=== PATIENT | female | born 1940 | race Caucasian/White ===

== ENCOUNTER → 2016-10-24 | Outpatient (CLI) | payer MEDICARE, BC ==
[~2016-10-24] MED LIST: ADVIL200 M1 PO; ATENOLOL; CALCIUM 1,2001 EACH PO; FISH OIL; GLUCOSAMINE; LIPITOR; LIPITOR20 MG PO; LISINOPRIL20 MG PO; LYSINE; MEDROL4 MG/DOSE- PO; METAMUCIL1 PKT PO; METFORMIN HCL500 M2 PO; MULTI-VITAMIN1 TAB; NEXIUM; NITROSTAT0.4 MG SL; OYSTER CALCIUM500 MG; PRILOSEC PO; PRILOSEC20 MG PO; PRINIVIL; TENORMIN50 MG PO; VIT B-12; VIT E; VITAMIN C; VITAMIN D 4001 UDTAB PO
[2016-10-24 16:30] LABS: BASOPHIL# 0.1 X10e3 (0-0.3); BASOPHIL% 0.9 % (0-2.5); EOSINOPHIL# 0.3 X10e3 (0-0.7); EOSINOPHIL% 2.8 % (0.0-7.0); HEMATOCRIT 39.4 % (35.0-45.0); HEMOGLOBIN 12.9 gm/dL (12.0-16.0); LYMPHOCYTE# 2.9 X10e3 (1.0-3.5); LYMPHOCYTE% 29.7 % (17.0-45.0); MEAN CELL VOLUME 92.1 FL (83-96); MEAN CORPUSCULAR HEMOGLOBIN 30.1 PG (28-34); MEAN CORPUSCULAR HGB CONC 32.7 g/dL (30-36); MEAN PLATELET VOLUME 8.4 FL (6.5-11.5); MONOCYTE# 0.8 X10e3 (0-1.0); MONOCYTE% 8.7 % (3.0-12.0); NEUTROPHIL# 5.6 X10e3 (1.5-7.1); NEUTROPHIL% 57.9 % (40-75); PLATELET COUNT 170 X10e3 (140-420); RED BLOOD COUNT 4.28 X10e (3.90-5.30); RED CELL DISTRIBUTION WIDTH 13.4 % (11.0-15.5); WHITE BLOOD COUNT 9.7 X10e3 (4.0-10.5)
[2016-10-24 16:31] LABS: DIFF IND NO
[2016-10-24 16:56] LABS: ALBUMIN SERUM 4.6 g/dL (3.5-5.0); BILIRUBIN,TOTAL 0.9 mg/dL (0.2-2.0); BUN/CREATININE RATIO 23.33; CALCIUM SERUM 9.4 mg/dL (8.4-10.2); CREATININE SERUM 0.9 mg/dL (0.6-1.4); GLOM FILT RATE Estimated 62.6 mL/min (>60); MAGNESIUM 1.1 mg/dL (1.6-3.0); POTASSIUM 4.3 mmol/L (3.5-5.1); PROTEIN TOTAL SERUM 7.4 g/dL (6.0-8.3)
[2016-10-24 17:17] LABS: THYROID STIMULATING HORMONE 5.06 uIU/ml (0.34-5.60)
[2016-10-24 17:21] LABS: FREE T3 2.7 pg/mL (2.5-3.9)
[2016-10-24 17:23] LABS: FREE THYROXIN (T4) 0.95 ng/dL (0.58-1.64)
== END | disposition home or self-care (01) ==
LOC: CLAB 16:02
PROVIDERS: Internal Medicine Cardiovascular Disease
DX: I48.91 Unspecified atrial fibrillation (principal)
CPT/HCPCS: 36415; 80053; 83735; 84439; 84443; 84481; 85025

== ENCOUNTER → 2017-01-02 | Outpatient (CLI) | payer MEDICARE, BC ==
--- NOTE | ~2017-01-02 | US85 ---
[facility] A Service of [facility] RADIOLOGY TEXT RESULTS PATIENT: ALEXANDRO VALENZUELA LOCATION: CNIV : 42 UNIT #: [id number] AGE: [address]: Kimberlyn Craft MD SEX: F ORDER DR: [id number] [facility] [address] [place], [place] [address] [id number] O MR#: [id number] Acc #: [id number] NAME: ALEXANDRO VALENZUELA : 1940 SEX: F STUDY DATE/TIME: 01/02/2017 14:12 UNIT: CNIV ROOM: STUDY DESCRIPTION: [facility] or [facility] Attending Physician: Charlene Craft M.D. Referring Physician: Charlene Craft M.D. Ordering Physician: Charlene Craft M.D. Primary Care Physician: Antolin Vaca M.D. MEDICAL IMAGING REPORT This report is preliminary unless electronic signature is present DATE OF EXAM 01/02/2017 EXAMINATION Right lower extremity giovanna duplex. CLINICAL HISTORY Right foot swelling x2 months. FINDINGS There is phasic spontaneous flow with respiration seen over the right common femoral, deep femoral, femoral, popliteal, anterior and posterior tibial, peroneal, and saphenous veins. There is compressibility of the vein lumen at all of the aforementioned vessels. IMPRESSION 1. There is no evidence of a DVT of the right lower extremity on today's exam. Dictated by... Balbir Perez M.D. THIS IS AN ELECTRONICALLY VERIFIED REPORT Balbir Perez M.D. at 01/04/2017 7:48 AM RUPERT/marianna TD: 01/02/2017 23:45 JOB #: [id number] [facility] A Service [facility] RADIOLOGY TEXT RESULTS PATIENT: ALEXANDRO VALENZUELA LOCATION: CNIV : 42 UNIT #: [id number] AGE: [address]: Kimberlyn Craft MD SEX: F ORDER DR: MEDICAL IMAGING REPORT Page 1 of 1 COPY
== END | disposition home or self-care (01) ==
LOC: CNIV 13:52
DX: M79.89 Other specified soft tissue disorders (principal); R60.0 Localized edema
CPT/HCPCS: 93971